=== PATIENT | male | born 1995 | race Caucasian/White ===

== ENCOUNTER 2025-03-30 10:54 | Emergency (ER) | payer BC, SELFPAY ==
[2025-03-30] MEDS ORDERED: Ondansetron PF 4 MG/2 ML Vial ONE (11:29)
[2025-03-30] MEDS ORDERED: Famotidine/PF 20 mg/2ml Vial ONE (11:39)
[2025-03-30 11:49] LABS: #Basophils 0.03 10x3/uL (0.0-0.2); #Eosinophils Less than 0.03 10x3/uL (0.0-0.7); #Monocytes 0.76 10x3/uL (0.11-0.59); #Neutrophils 11.60 10x3/uL (1.40-6.50); %Basophils 0.2 % (0.0-1.0); %Eosinophils 0.1 % (0.0-10.0); %Lymphocytes 8.3 % (21.0-51.0); %Monocytes 5.6 % (0.0-10.0); %Neutrophils 85.1 % (42.0-75.0); Hematocrit 47.6 % (42.0-52.0); Hemoglobin 16.7 g/dL (14.0-18.0); Mean Corpuscular Hemoglobin 30.7 pg (27.0-31.0); Mean Corpuscular Volume 87.5 fL (78.0-98.0); Platelet Count 265 10x3/uL (130-400); Red Blood Cell (RBC) Count 5.44 mill/uL (4.70-6.10); White Blood Cell (WBC) Count 13.62 10x3/uL (4.8-10.8)
[2025-03-30 12:14] LABS: ALT (SGPT) 42 U/L (Less than 45); AST (SGOT) 76 U/L (11-34); Albumin 5.2 g/dL (3.1-4.5); Alkaline Phosphatase 58 U/L (40-110); Anion Gap 24 mmol/L (10-20); BUN (Urea Nitrogen) 17 mg/dL (8.9-20.6); Bilirubin, Total 1.6 mg/dL (0.3-1.2); Calc. Creatinine Clearance 0 mL/min (70-130); Calcium 10.2 mg/dL (7.8-10.44); Carbon Dioxide 22 mmol/L (22-29); Chloride 102 mmol/L (98-107); Globulin 3.2 g/dL (2.4-3.5); Glucose 104 mg/dL (70-105); Lipase 26 U/L (8-78); Magnesium 1.7 mg/dL (1.6-2.6); Potassium 4.1 mmol/L (3.5-5.1); Sodium 144 mmol/L (136-145)
[2025-03-30] MEDS ORDERED: Mag-Al 1200 mg/1200 mg/30 ML UDCUP ONE (12:42)
[2025-03-30] MEDS ORDERED: Lidocaine Viscous Sol 2% 15 ml UD Cup ONE (12:42)
[2025-03-30 13:55] LABS: Bacteria/HPF None Seen HPF (None Seen); CAUTI Indications for Culture Pelvic or flank pain; Glucose, Urine (Dipstick) Normal (Negative); Leukocyte Negative Leu/uL (Negative); Protein, Urine (Dipstick) 50 mg/dL (Neg-Trace); RBC/HPF 0-3 HPF (0-3); Specific Gravity, Urine 1.034 (1.002-1.036); Urine Culture Reflex No No; WBC/HPF 0-3 HPF (0-3)
== END 2025-03-30 14:14 | disposition home or self-care (01) ==
LOC: ERS 10:54
DX: R11.2 Nausea with vomiting, unspecified (principal)
CPT/HCPCS: 80053; 81001; 83690; 83735; 85025; 96374; 96375; J1308; J2405